=== PATIENT | male | born 1965 | race Caucasian/White ===

== ENCOUNTER 2024-02-22 22:57 | Inpatient (IN) | payer OTHER ==
[~2024-02-22] VITALS: Ht 180.3 cm; Wt 92.5 kg
--- NOTE | 2024-02-22 22:59 | NUR ---
ERMD at bedside. MSE in progress.
[2024-02-22] MEDS ORDERED: HALOPERIDOL LACTATE 5 MG/1 ML VIAL ONE (23:01)
[2024-02-22] MEDS: HALOPERIDOL LACTATE 5 MG/1 ML VIAL IM ONE (23:05)
--- NOTE | 2024-02-22 23:05 | NUR ---
Administered medication as prescribed. Assisted patient into comfortable position. safety and comfort measures in place.
[2024-02-22] MEDS ORDERED: LORAZEPAM 2 MG/1 ML VIAL IV ONE (23:30)
[2024-02-22] MEDS: IV NORMAL SALINE 1000 ML BAG IV ONE (23:43)
[2024-02-22 23:45] LABS: BASOPHILS # (AUTO) 0.1 K/UL (0.0-0.2); BASOPHILS % (AUTO) 1.4 % (0.0-2.0); EOSINOPHILS % (AUTO) 0.5 % (0.0-7.0); HEMATOCRIT 49.8 % (36.7-47.1); HEMOGLOBIN 16.8 g/dL (12.5-16.3); LYMPHOCYTES # (AUTO) 1.2 K/uL (0.8-4.8); LYMPHOCYTES % (AUTO) 13.3 % (20.5-51.5); MEAN CORPUSCULAR HEMOGLOBIN 31.9 uug (23.8-33.4); MEAN CORPUSCULAR HGB CONC 34 g/dL (32.5-36.3); MEAN CORPUSCULAR VOLUME 94.8 fL (73.0-96.2); MONOCYTES # (AUTO) 0.6 K/uL (0.1-1.30); MONOCYTES % (AUTO) 6.8 % (0.0-11.0); NEUTROPHILS # (AUTO) 7.3 K/uL (1.8-8.9); PLATELET COUNT (AUTO) 248 K/uL (152-348); RED BLOOD CELL COUNT(AUTO) 5.26 MIL/uL (4.06-5.63); RED CELL DISTRIBUTION WIDTH 16.5 % (12.1-16.2); WHITE BLOOD COUNT (AUTO) 9.4 K/uL (3.6-10.2)
[2024-02-22] MEDS: LIDOCAINE 2% (GLYDO= UROJET) 10 ML JELLY MM ONE (23:45)
[2024-02-22] MEDS ORDERED: LABETALOL HCL 100 MG/20 ML VIAL IV ONE (23:45)
--- NOTE | 2024-02-22 23:55 | NUR ---
x-ray at bedside.
[2024-02-22 23:57] LABS: CALCIUM 8.8 mg/dL (8.5-10.1); CARBON DIOXIDE 22 mmol/L (21-32); CHLORIDE 94 mmol/L (98-107); CREATININE 1.7 mg/dL (0.6-1.3); DIFFERENTIAL COMMENT 1; GLUCOSE 101 mg/dL (74-106); POTASSIUM 3.7 mmol/L (3.5-5.1); SODIUM SERUM 136 mmol/L (136-145); UREA NITROGEN, BLOOD 17 mg/dL (7-18)
[2024-02-23] VITALS (9 sets, daily range): BP systolic 100–116; BP diastolic 65–78; TEMP 97.4–98.4; O2SAT 94–99
[2024-02-23] MEDS ORDERED: levoFLOXacin 750MG/D5W 150 ML IV ONE (00:05)
[2024-02-23 00:10] LABS: ALANINE AMINOTRANSFERASE 31 U/L (16-63); ALBUMIN 3.9 g/dL (3.4-5.0); ALKALINE PHOSPHATASE 84 U/L (50-136); ASPARTATE AMINOTRANSFERASE 28 U/L (15-37); BILIRUBIN,DIRECT 0.3 mg/dL (0.0-0.2); BILIRUBIN,TOTAL 1.2 mg/dL (0.2-1.0); NT-PRO BNP 1880 pg/mL (0-125); TOTAL PROTEIN, SERUM 7.1 g/dL (6.4-8.2)
[2024-02-23] MEDS: IV NORMAL SALINE 1000 ML BAG IV ONE ×2 (00:22→01:44)
[2024-02-23] MEDS: levoFLOXacin 750 MG/D5W 150 ML PIGGYBACK IV ONE (00:30)
[2024-02-23] MEDS ORDERED: METO-356 PO (00:31)
[2024-02-23] MEDS ORDERED: IOHEXOL 350 100 ML INFUS..BTL ONE (00:56)
[2024-02-23] MEDS ORDERED: IV NORMAL SALINE 250 ML IV ONE (00:56)
[2024-02-23] MEDS ORDERED: SWABABLE VALVE TRANSFER SET EA MC ONE (00:56)
[2024-02-23] MEDS ORDERED: LIDOCAINE 2% (GLYDO= UROJET) 10 ML JELLY MM ONE (01:28)
--- NOTE | 2024-02-23 01:30 | NUR ---
Patient was placed on portable monitor and portable oxygen. Patient was escorted to Radiology department accompanied with the radiology director ( giovanna). Patient tolerated The CTA well and was returned to ER @ 01:45am
[2024-02-23 01:48] LABS: *BLOOD, URINE NEGATIVE (NEGATIVE); *CLARITY,URINE CLEAR (CLEAR); *COLOR,URINE YELLOW (YELLOW); *KETONES,URINE 4+ (NEGATIVE); *PROTEIN,URINE 1+ (NEGATIVE); *UROBILINOGEN,URINE 0.2 E.U./dl (NORMAL); LEUKOCYTE ESTERASE ,URINE NEGATIVE (NEGATIVE); NITRITE, URINE NEGATIVE (NEGATIVE); PH,URINE 6.5 (5.0-8.0); UGLUCOSE NEGATIVE (NEGATIVE)
--- NOTE | 2024-02-23 01:48 | NUR ---
straight cath was applied , 200 ml urine was voided. Urine sample was collected and sent to [facility].
[2024-02-23 01:58] LABS: *AMPHETAMINE, URINE NEGATIVE (NEGATIVE); *BARBITURATE, URINE NEGATIVE (NEGATIVE); *BENZODIAZEPINE, URINE NEGATIVE (NEGATIVE); *CANNABINOID, URINE NEGATIVE (NEGATIVE); *COCCAINE, URINE NEGATIVE (NEGATIVE); *OPIATE, URINE NEGATIVE (NEGATIVE); *PHENCYCLIDINE SCREEN,URINE NEGATIVE (NEGATIVE); FENTANYL, URINE NEGATIVE (NEGATIVE)
[2024-02-23 02:04] LABS: *BILIRUBIN,URIN 1+ (NEGATIVE)
[2024-02-23 02:10] LABS: BACTERIA,URINE FEW /HPF (NONE SEEN)
[2024-02-23 02:11] LABS: SQUAMOUS EPITHELIAL CELL,UR FEW /HPF (NONE SEEN); WBC,URINE 0-3 /HPF (0-3)
[2024-02-23 02:12] LABS: COARSE GRANULAR CASTS,URINE 0-3 /LPF
[2024-02-23 02:13] LABS: RBC,URINE 0-3 /HPF (0-3)
--- NOTE | 2024-02-23 02:45 | NUR ---
Patient is resting comfortably in bed with eyes closed. No S/S of distress noted.
--- NOTE | 2024-02-23 04:22 | NUR ---
[facility]aged [employer] for panel call. Awaiting call back from NP. Ed Wright.
[2024-02-23] MEDS ORDERED: ACETAMINOPHEN 325 MG TABLET PO PRN (04:30)
[2024-02-23] MEDS ORDERED: NITROGLYCERIN OINT 1 GM PACKET TP PRN (04:30)
[2024-02-23] MEDS ORDERED: ONDANSETRON 4 MG/2 ML VIAL IV PRN (04:30)
[2024-02-23] MEDS ORDERED: MAGNESIUM HYDROXIDE 30 ML LIQUID UDC PO PRN (04:30)
[2024-02-23] MEDS ORDERED: REMEDY ESSENTIAL ZINC PASTE 113 GM TP PRN (04:30)
--- NOTE | 2024-02-23 04:34 | NUR ---
ANDI. Ed Wright on the phone with Dr. barrera. Patient will be admitted to [facility].
--- NOTE | 2024-02-23 05:04 | NUR ---
called [facility], report was given to Sandra WILSON.
--- NOTE | 2024-02-23 05:11 | NUR ---
CHANGE OF PLAN: Patient will go to [facility]
--- NOTE | 2024-02-23 05:17 | NUR ---
Called [facility] report was given to Patricia WILSON
--- NOTE | 2024-02-23 05:30 | NUR ---
bib by efren a/a/o xs 4 no distress noted
[2024-02-23 05:53] LABS: BASOPHILS % (AUTO) 0.4 % (0.0-2.0); DIFFERENTIAL COMMENT 1; EOSINOPHILS # (AUTO) 0.1 K/uL (0.0-0.7); EOSINOPHILS % (AUTO) 1.2 % (0.0-7.0); HEMATOCRIT 44.7 % (36.7-47.1); HEMOGLOBIN 14.9 g/dL (12.5-16.3); LYMPHOCYTES # (AUTO) 0.9 K/uL (0.8-4.8); LYMPHOCYTES % (AUTO) 15.8 % (20.5-51.5); MEAN CORPUSCULAR HEMOGLOBIN 31.8 uug (23.8-33.4); MEAN CORPUSCULAR HGB CONC 33 g/dL (32.5-36.3); MEAN CORPUSCULAR VOLUME 95.1 fL (73.0-96.2); MONOCYTES # (AUTO) 0.6 K/uL (0.1-1.30); MONOCYTES % (AUTO) 9.5 % (0.0-11.0); NEUTROPHILS # (AUTO) 4.3 K/uL (1.8-8.9); NEUTROPHILS % (AUTO) 73.1 % (38.5-71.5); PLATELET COUNT (AUTO) 181 K/uL (152-348); RED CELL DISTRIBUTION WIDTH 16.2 % (12.1-16.2); WHITE BLOOD COUNT (AUTO) 5.9 K/uL (3.6-10.2)
[2024-02-23 06:13] LABS: ALBUMIN 2.9 g/dL (3.4-5.0); BILIRUBIN,DIRECT 0.3 mg/dL (0.0-0.2); CALCIUM 7.6 mg/dL (8.5-10.1); CREATININE 1.3 mg/dL (0.6-1.3); PHOSPHOROUS 4.5 mg/dL (2.5-4.9); POTASSIUM 4.4 mmol/L (3.5-5.1); TOTAL PROTEIN, SERUM 5.7 g/dL (6.4-8.2)
--- NOTE | 2024-02-23 06:31 | NUR ---
called DR. FERNNÁDEZ ABOUT PT STATING THAT HE HAD DM TYPE 2, AND THAT HE WASN'T AWARE OF MEDS THAT HE TOOK FOR THAT
--- NOTE | 2024-02-23 07:30 | NUR ---
report given to serena garnett
--- NOTE | 2024-02-23 08:00 | NUR ---
patient is deep sleep, arousable to touch, able to communicate needs, patient is on room air.
--- NOTE | 2024-02-23 08:58 | NUR ---
PS of 18 at this time by RT Gilmer.
[2024-02-23] MEDS: ASPIRIN 81 MG TAB.CHEW PO SCH (09:37)
[2024-02-23] MEDS: FUROSEMIDE 20 MG/2 ML VIAL IV SCH (09:37)
--- NOTE | 2024-02-23 09:45 | NUR ---
vel north in the unit to see patient. patient is able to downgrade to tele. patient plan for ECHO today and possible discharge.
[2024-02-23] MEDS ORDERED: ASPI-1169 PO (10:15)
[2024-02-23] MEDS ORDERED: LISI10TA29 PO (10:26)
[2024-02-23] MEDS ORDERED: TRAZ-257 PO (10:27)
[2024-02-23] MEDS ORDERED: QUET50TA PO (10:27)
[2024-02-23] MEDS ORDERED: METF500S7 PO (10:28)
[2024-02-23] MEDS ORDERED: CARV3.122 PO (10:30)
[2024-02-23] MEDS ORDERED: ATOR40TA PO (10:31)
[2024-02-23] MEDS ORDERED: TRAZODONE 100 MG TABLET PO PRN (10:45)
[2024-02-23] MEDS ORDERED: METF-440 PO (11:00)
[2024-02-23] MEDS: QUETIAPINE FUMARATE 25 MG TABLET PO SCH (11:42)
[2024-02-23] MEDS ORDERED: ALBUMIN HUMAN 25% 100 ML IV SCH ×2 (12:00)
--- NOTE | 2024-02-23 12:10 | NUR ---
pt received from ICU via WC, denies pain or discomfort at this time, no distress noted, pt in bed at low position, call light at easy reach, fall precautions in place.
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
--- NOTE | 2024-02-23 16:21 | NUR ---
pt agreed to be discharge home originally when the instructions were presented to him he signed the first paper and then he started shaking and reporting he is very anxious and scared to be discharged. Dr Mcduffie was informed ativan 0.5 PO to be given and monitor for one hour.
[2024-02-23] MEDS: LORAZEPAM 0.5 MG TABLET PO ONE (16:58)
[2024-02-23] MEDS ORDERED: Medication Not On Formulary EA (Quetiapine Fumarate (Seroquel) 50 MG) PO SCH (17:00)
--- NOTE | 2024-02-23 17:00 | NUR ---
Ativan 0.5 once given per MD order, will continue to monitor the patient for discharge in one hour per MD order.
--- NOTE | 2024-02-23 17:30 | NUR ---
Seroquel was held since the patient was given ativan per MD for anxiety and the pt to be discharged.
--- NOTE | 2024-02-23 17:45 | NUR ---
patient reports he is calmer and ready to be discharged, pt denies pain, he ate 50% of the dinner and claimed he did not like the dinner, this service writer asked him if he like me to get him anything else, The patient replied "no". Patient reported he will call for lyft when he is in the lobby. pt was discharged and accompanied to the lobby, no distress noted.
--- NOTE | 2024-02-23 18:13 | NUR ---
pt was discharged home at 1800.
[2024-02-23] MEDS ORDERED: ATORVASTATIN 40 MG TABLET PO SCH (21:00)
== END 2024-02-23 18:00 | disposition home or self-care (01) | DRG 812 ==
LOC: ER 22:59 → CCU 02-23 04:34 → TELE3 02-23 11:28
PROVIDERS: ADMIT Nurse Practitioner Family; ATTEND Nurse Practitioner Family
DX: T43.651A Poisoning by methamphetamines accidental (unintentional), initial encounter (principal); E44.0 Moderate protein-calorie malnutrition; N17.9 Acute kidney failure, unspecified; I95.2 Hypotension due to drugs; E87.1 Hypo-osmolality and hyponatremia; E88.09 Other disorders of plasma-protein metabolism, not elsewhere classified; I95.9 Hypotension, unspecified; R07.9 Chest pain, unspecified; E86.0 Dehydration; F15.10 Other stimulant abuse, uncomplicated; K80.20 Calculus of gallbladder without cholecystitis without obstruction; I10 Essential (primary) hypertension; F17.210 Nicotine dependence, cigarettes, uncomplicated; E11.9 Type 2 diabetes mellitus without complications; Z79.84 Long term (current) use of oral hypoglycemic drugs; Z79.899 Other long term (current) drug therapy; T43.4X5A Adverse effect of butyrophenone and thiothixene neuroleptics, initial encounter; Y92.238 Other place in hospital as the place of occurrence of the external cause; Y92.89 Other specified places as the place of occurrence of the external cause
CPT/HCPCS: 36415; 71045; 71275; 83735; 84100; 84484; 85025; 87040; 93005; 93307; A4606; A4663; C1758; G0378; J1630; J1940; J1956; J7040; Q9967